=== PATIENT | male | born 1970 | race Caucasian/White ===

== ENCOUNTER 2022-05-03 06:50 | Observation (INO) | payer BC ==
[2022-04-29 13:13] LABS: Absolute Lymphocytes (CBC) 1.4 K/uL (0.7-4.9); Hematocrit 48.3 % (39.6-49.0); Lymphocytes % 23.7 % (15.3-44.8); MCV 89.3 fL (80-100); MPV 8.4 fL (7.6-11.3); RBC Red Blood Cell Count 5.41 M/uL (4.33-5.43)
[2022-04-29 13:25] LABS: Potassium 4.4 mmol/L (3.5-5.1)
[2022-05-03] MEDS ORDERED: CEFAZOLIN SODIUM 1 GM/VIAL ONE (07:12)
[2022-05-03] MEDS: Ringers Lactate 1,000 ML IV ONE (07:30)
[2022-05-03] MEDS ORDERED: propofoL 200 MG/20 ML VIAL IV ONE (07:46)
[2022-05-03] MEDS ORDERED: MIDAZOLAM HCL 2 MG/2 ML INJ ONE (07:46)
[2022-05-03] MEDS ORDERED: FENTANYL CITR 100 MCG/2 ML ONE (07:46)
[2022-05-03] MEDS ORDERED: ROCURONIUM 50 MG/5 ML VIAL IV ONE ×2 (07:47→08:48)
[2022-05-03] MEDS ORDERED: LIDOCAINE 2% MPF 5 ML VIAL ONE (07:47)
[2022-05-03] MEDS ORDERED: ONDANSETRON 4 MG/2 ML VIAL ONE (07:47)
--- NOTE | 2022-05-03 07:56 | P.HP ---
Date of Service: 05/03/22 PC: This 51-year-old male presents for repair of right possible left inguinal hernia with mesh. HPC: Patient has been experiencing right lower quadrant abdominal pain for the last few months. States he feels a bulge in that area. Hurts whenever he strains coughs or lifts anything. PSHx: Negative Social Hx: Allergic to clindamycin Sys R: No cough, wheeze, shortness of breath. No chest pain or palpitations. Denies any urinary complaints O/E: Awake alert vital signs are stable HEENT: Intact Chest: Air entry equal bilaterally Abd: Right reducible inguinal hernia with cough impulse, left side questionable [place]: Intact Data: Within normal limits Impression: Right possible left inguinal hernia. Plan: I will take him to the operating room for laparoscopic possible open repair of this right inguinal hernia. We will also do the left-hand side if we see a sac in that area. The risks of this procedure have been discussed. The possibility of bleeding, infection, chronic pain, need for further surgeries and procedures as well as recurrence were outlined. He understands and wants to proceed.
[2022-05-03] MEDS ORDERED: GLYCOPYRROLATE 0.2 MG/ML SYR ONE ×2 (08:15→10:02)
[2022-05-03 08:24] LABS: SARS-CoV-2 Antigen Rapid Res Negative (Negative)
[2022-05-03] MEDS ORDERED: dexAMETHasone 10 MG/ML VIAL ONE (08:34)
[2022-05-03] MEDS ORDERED: EPHEDRINE SULF 50 MG/ML VIAL ONE (08:44)
[2022-05-03] MEDS ORDERED: MORPHINE 10 MG/ML VIAL ONE (09:42)
[2022-05-03] MEDS ORDERED: KETOROLAC 30 MG/ML INJ ONE (09:45)
--- NOTE | 2022-05-03 10:01 | P.OP ---
Preoperative diagnosis: Recurrent right inguinal hernia possible left Postoperative diagnosis: Recurrent right inguinal hernia [indirect) Primary procedure: Transabdominal reduction and repair of recurrent right inguinal hernia Anesthesia: General Estimated blood loss: Less than 10 cc Specimen: # Operative Technique: The patient brought the operating room placed supine on the table. After the induction of adequate general endotracheal anesthesia, the area of the abdomen was prepped with a DuraPrep solution, Horn catheter was inserted, and he was draped in usual aseptic manner. A subumbilical incision was made. This brought down through the skin and subcutaneous tissue. Anterior fascia was opened and a finger was passed down towards the pubic symphysis. We tried to pass our preperitoneal balloon, but it did not pass easily. Hence I converted to a transabdominal repair. Through our initial subumbilical incision we were now able to use a Visiport into the peritoneal cavity. General inspection of the abdominal cavity showed a lot of adhesions in the upper midline into his midline incision. Down in the left side we could see that there was adhesions to the mesh and the area where he had his previous left inguinal hernia repair done. On the right side there was an obvious indirect inguinal hernia. The peritoneum was opened above the mesh. The inferior portion of the peritoneum was dissected off the mesh well down into the peritoneal cavity. Dissecting medially were able to see the attachment of the mesh to the pubic tubercle. Superior pole flap was also developed. Now using a right medium piece preformed mesh this was introduced into the peritoneal cavity. It was fixed medially at the Jered's ligament. It was then laid in and a light tach was placed at the tail of the mesh. The area was now reperitonealized using the protractor as well. Good coverage of the mesh having been obtained, the patient was taken out of Trendelenburg. The pneumoperitoneum was then collapsed. We could see the intestines rolled up on top of the peritoneum. A good repair having been obtained, the peritoneal cavity was now completely deflated. Attention was turned towards umbilical trocar site. This was approximated using an absorbable suture Maxon. At this point the incisions were injected with 0.25% Marcaine, and the skin was closed with tierney. At the end the procedure he was in a stable condition when sent to the recovery room. Needle sponge instrument count were correct. No drains were placed. 1 piece of mesh was introduced to the right inguinal area. The Horn catheter had been removed. Estimated blood loss less than 10 cc. Complications: None Transferred to: Recovery Room Condition: Good
[2022-05-03] MEDS ORDERED: NEOSTIGMINE 1 MG/ML -5 ML ONE (10:02)
[2022-05-03] MEDS ORDERED: HYDROCODONE/APAP 7.5/325 MG TAB PO PRN (10:13)
[2022-05-03] MEDS ORDERED: MORPHINE 4 MG/ML SYR IV PRN (10:13)
[2022-05-03] MEDS: HYDROMORPHONE HCL 1 MG/ML INJ ONE ×2 (10:15→10:27)
--- OUTSIDE RECORDS SUMMARY | 2022-05-03 10:32 | XMS REPORT | Continuity of Care Document ---
:1970 Author Organization [facility] t Address [address] [place] [address] Care Team Providers Name Role Phone Luis Murphy MD Primary Care Physician AL WEBBER Attending Clinician Unavailable Al Webber MD Attending Clinician Lab, Ang - Db Attending Clinician Unavailable Doctor Unassigned, [place] Attending Clinician Unavailable Provider, [facility] Attending Clinician Unavailable Valery Silveira Attending Clinician VALERY PINZON Attending Clinician Unavailable Gabriel Rashid MD Attending Clinician Payers Payer Name Policy Type Policy Number Effective Date Expiration Date S ource Problems Condition Condition Condition Status Onset Resolution Last Treating Co mments Source Name Details Category Date Date Treatment Clinician Date Cellulitis Cellulitis Disease Active 2019-0 U nivers of right of right 3-19 ity of hand hand 00:00: [address] Allergies, Adverse Reactions, Alerts Allergy Allergy Status Severity Reaction(s) Onset Inactive Treating Comm ents Source Name Type Date Date Clinician clindamy DA Active [facility]- [place] [facility] adhesive DA Active [facility] 8[facility]22 [place] [facility] CLINDAMY DRUG Active Hives Univers JARED HCL INGREDI 3-17 ity of 00:00: [place] 00 Medical Branch Clindamy Propensi Active Hives Univer s jared Hcl ty to 3-17 ity of adverse 00:00: [place] reaction 00 Medical s Branch Social History Social Habit Start Date Stop Date Quantity Comments Source Exposure to 2021-12-14 2021-12-24 Not sure [facility]-CoV-2 00:00:00 09:41:00 [facility] (event) [place] Alcohol intake 2020-05-17 2020-05-17 Current University of 00:00:00 00:00:00 non-drinker of [facility] alcohol (finding) [place] Tobacco use and 2018-06-10 2018-06-10 Smokeless tobacco Un iversity of exposure 00:00:00 00:00:00 non-user [facility] Sex Ass[birth year] At [birth year] Universit y of 00:00:00 00:00:00 [facility] Smoking Status Start Date Stop Date Source Never smoked tobacco [facility] [place] [facility] Medications Ordered Filled Start Stop Current Ordering Indication Dosage Frequency Signature Comments Components Source Medication Medication Date Date Medication? Clinician (SIG) Name Name metoprolol 2021-03- No 25mg Take 25 mg Univers tartrate 25 0-02 10-02 by mouth 2 i ty of mg tablet 16:34: 00:00 (two) [place] 41 :00 times Medical daily. Branch POTASSIUM 2021-03- No Take by [facility] ers ORAL 0-02 10-02 mouth. ity of 16:34: 00:00 [place] 41 :00 Medical Branch metoprolol 2021-03- No 25mg Take 25 mg Univers tartrate 25 0-02 10-02 by mouth 2 i ty of mg tablet 16:34: 00:00 (two) [place] 41 :00 times Medical daily. Branch POTASSIUM 2021-03- No Take by [facility] ers ORAL 0-02 10-02 mouth. ity of 16:34: 00:00 [place] 41 :00 Medical Branch metoprolol 2021-03- No 25mg Take 25 mg Univers tartrate 25 0-02 10-02 by mouth 2 i ty of mg tablet 16:34: 00:00 (two) [place] 41 :00 times Medical daily. Branch POTASSIUM 2021-03- No Take by [facility] ers ORAL 0-02 10- mouth. ity of 16:34: 00:00 [place] 41 :00 Medical Branch metoprolol 2021-03- No 25mg Take 25 mg Univers tartrate 25 0-02 10-02 by mouth 2 i ty of mg tablet 16:34: 00:00 (two) [place] 41 :00 times Medical daily. Branch POTASSIUM 2021-03- No Take by [facility] ers ORAL 0-02 10- mouth. ity of 16:34: 00:00 [place] 41 :00 Medical Branch furosemide 2021-03- No 80mg Take 80 mg Univers 80 mg 0-02 10-02 by mouth ity of tablet 16:34: 00:00 daily. [place] 38 :00 Medical Branch furosemide 2021-03- No 80mg Take 80 mg Univers 80 mg 0-02 10-02 by mouth ity of tablet 16:34: 00:00 daily. [place] 38 :00 Medical Branch furosemide 2021-03- No 80mg Take 80 mg Univers 80 mg 0-02 10-02 by mouth ity of tablet 16:34: 00:00 daily. [place] 38 :00 Medical Branch furosemide 2021-03- No 80mg Take 80 mg Univers 80 mg 0-02 10-02 by mouth ity of tablet 16:34: 00:00 daily. [place] 38 :00 Medical Branch naltrexone 0 Yes [id number] 25mg Take 0.5 Univers 50 mg 9-30 tablets by ity of tablet 00:00: mouth [place] 00 every Medical other day. Branch buPROPion 0 Yes [id number] 100mg Take 1 Univers SR 100 mg 9-30 tablet by ity o f SR tablet 00:00: [place] the Medical morning. Branch semaglutide Yes [id number] 2.4mg inject 2.4 Univers , weight 9-30 mg under ity of loss, 00:00: the skin [place] (WE) 00 weekly. Medical 2.4 mg/0.75 Branch mL PnIj SC injection naltrexone 2021-0 Yes [id number] 25mg Take 0.5 Univers 50 mg 9-30 tablets by ity of tablet 00:00: mouth [place] 00 every Medical other day. Branch buPROPion 2021-0 Yes [id number] 100mg Take 1 Univers SR 100 mg 9-30 tablet by ity o f SR tablet 00:00: [place] the Medical morning. Branch semaglutide 2021-0 Yes [id number] 2.4mg inject 2.4 Univers , weight 9-30 mg under ity of loss, 00:00: the [facility] (WE) 00 weekly. Medical 2.4 mg/0.75 Branch mL PnIj SC injection naltrexone 2021-0 Yes [id number] 25mg Take 0.5 Univers 50 mg 9-30 tablets by ity of tablet 00:00: mouth [place] 00 every Medical other day. Branch buPROPion 2021-0 Yes [id number] 100mg Take 1 Univers SR 100 mg 9-30 tablet by ity o f SR tablet 00:00: [place] the Medical morning. Branch semaglutide 2021-0 Yes [id number] 2.4mg inject 2.4 Univers , weight 9-30 mg under ity of loss, 00:00: the [facility] (WEY) 00 weekly. Medical 2.4 mg/0.75 Branch mL PnIj SC injection naltrexone 2021-0 Yes [id number] 25mg Take 0.5 Univers 50 mg 9-30 tablets by ity of tablet 00:00: mouth [place] 00 every Medical other day. Branch buPROPion 2021-0 Yes [id number] 100mg Take 1 Univers SR 100 mg 9-30 tablet by ity o f SR tablet 00:00: [place] the Medical morning. Branch semaglutide 2-0 Yes [id number] 2.4mg inject 2.4 Univers , weight 9-30 mg under ity of loss, 00:00: the [facility] (WEVY) 00 weekly. Medical 2.4 mg/0.75 Branch mL PnIj SC injection naltrexone 2021-0 Yes [id number] 25mg Take 0.5 Univers 50 mg 9-30 tablets by ity of tablet 00:00: mouth [place] 00 every Medical other day. Branch buPROPion 2021-0 Yes [id number] 100mg Take 1 Univers SR 100 mg 9-30 tablet by ity o f SR tablet 00:00: [place] the Medical morning. Branch semaglutide 2021-0 Yes [id number] 2.4mg inject 2.4 Univers , weight 9-30 mg under ity of loss, 00:00: the skin [place] (WEVY) 00 weekly. Medical 2.4 mg/0.75 Branch mL PnIj SC injection naltrexone 2021-0 Yes [id number] 25mg Take 0.5 Univers 50 mg 9-30 tablets by ity of tablet 00:00: mouth [place] 00 every Medical other day. Branch buPROPion 2021-0 Yes [id number] 100mg Take 1 Univers SR 100 mg 9-30 tablet by ity o f SR tablet 00:00: [place] the Medical morning. Branch semaglutide 2021-0 Yes [id number] 2.4mg inject 2.4 Univers , weight 9-30 mg under ity of loss, 00:00: the skin [place] (WEVY) 00 weekly. Medical 2.4 mg/0.75 Branch mL PnIj SC injection naltrexone 2021-0 Yes [id number] 25mg Take 0.5 Univers 50 mg 9-30 tablets by ity of tablet 00:00: mouth [place] 00 every Medical other day. Branch buPROPion 2021-0 Yes [id number] 100mg Take 1 Univers SR 100 mg 9-30 tablet by ity o f SR tablet 00:00: [place] the Medical morning. Branch semaglutide 2021-0 Yes [id number] 2.4mg inject 2.4 Univers , weight 9-30 mg under ity of loss, 00:00: the skin [place] (WEVY) 00 weekly. Medical 2.4 mg/0.75 Branch mL PnIj SC injection triamcinolo 2020-2020- No [id number] 40mg Univers ne 04-19 ity of acetonide 19:15: 18:20 [place] (KENALOG) 00 :00 Medical injection Branch 40 mg triamcinolo 2020- No [id number] 40mg 40 mg, Univers ne 1-24 01-24 Intramuscu ity of acetonide 19:15: 18:20 [place], ONCE, [place] (KENALOG[place] 00 :00 1 dose, Medical injection Sun Branch 40 mg 04/19/20 at 1315, Routine dabigatran 2020- No Take by Uni vers etexilate 04-19 0124 mouth. ity of mesylate 17:56: 00:00 [place] (PRADAXA 22 :00 Medical ORAL) Branch flecainide 2020-0 Yes 100mg Take 100 Un dash 50 mg 1-24 mg by ity of tablet 17:55: mouth 2 [place] 48 (two) Medical times Branch daily. metoprolol 2020-0 Yes 25mg Take 25 mg U nivers tartrate 25 1-24 by mouth 2 it y of mg tablet 17:55: (two) [place] 48 times Medical daily. Branch flecainide 0 Yes 100mg Take 100 Un dash 50 mg 1-24 mg by ity of tablet 17:55: mouth 2 [place] 48 (two) Medical times Branch daily. metoprolol 2020-0 Yes 25mg Take 25 mg U nivers tartrate 25 1-24 by mouth 2 it y of mg tablet 17:55: (two) [place] 48 times Medical daily. Branch flecainide 2020-0 Yes 100mg Take 100 Un dash 50 mg 1-24 mg by ity of tablet 11:55: mouth 2 [place] 48 (two) Medical times Branch daily. metoprolol 2020-0 Yes 25mg Take 25 mg U nivers tartrate 25 1-24 by mouth 2 it y of mg tablet 11:55: (two) [place] 48 times Medical daily. Branch flecainide 2020-0 Yes 100mg Take 100 Un dash 50 mg 1-24 mg by ity of tablet 11:55: mouth 2 [place] 48 (two) Medical times Branch daily. metoprolol 2020-0 Yes 25mg Take 25 mg U nivers tartrate 25 1-24 by mouth 2 it y of mg tablet 11:55: (two) [place] 48 times Medical daily. Branch flecainide 2020-0 Yes 100mg Take 100 Un dash 50 mg 1-24 mg by ity of tablet 11:55: mouth 2 [place] 48 (two) Medical times Branch daily. flecainide 2020-0 Yes 100mg Take 100 Un dash 50 mg 1-24 mg by ity of tablet 11:55: mouth 2 [place] [address] (two) Medical times Branch daily. flecainide 2021-0 Yes 100mg Take 100 Un dash 50 mg 1-24 mg by ity of tablet 11:55: mouth 2 [place] [address] (two) Medical times Branch daily. flecainide 2021-0 Yes 100mg Take 100 Un dash 50 mg 1-24 mg by ity of tablet 11:55: mouth 2 [place] [address] (two) Medical times Branch daily. flecainide 2021-0 Yes 100mg Take 100 Un dash 50 mg 1-24 mg by ity of tablet 11:55: mouth 2 [place] [address] (two) Medical times Branch daily. flecainide 2021-0 Yes 100mg Take 100 Un dash 50 mg 1-24 mg by ity of tablet 11:55: mouth 2 [place] [address] (two) Medical times Branch daily. flecainide 2021-0 Yes 100mg Take 100 Un dash 50 mg 1-24 mg by ity of tablet 11:55: mouth 2 [place] [address] (two) Medical times Branch daily. metoprolol 2021-0 Yes 25mg Take 25 mg U nivers tartrate 25 1-24 by mouth 2 it y of mg tablet 11:55: (two) [place] [address] times Medical daily. Branch methylPREDN 2021-0 Yes [id number] Take by Univers ISolone 1-24 mouth ity of (MEDROL, 00:00: SEE-INSTRU [place] as RUBY,) 4 mg 00 CTIONS. Medica l tablets follow Branch package directions methylPREDN 2021-0 Yes [id number] Take by Univers ISolone 1-24 mouth ity of (MEDROL, 00:00: SEE-INSTRU [place] as RUBY,) 4 mg 00 CTIONS. Medica l tablets follow Branch package directions methylPREDN 2021-0 Yes [id number] Take by Univers ISolone 1-24 mouth ity of (MEDROL, 00:00: SEE-INSTRU [place] as RUBY,) 4 mg 00 CTIONS. Medica l tablets follow Branch package directions methylPREDN 2021-0 Yes [id number] Take by Univers ISolone 1-24 mouth ity of (MEDROL, 00:00: SEE-INSTRU [place] as RUBY,) 4 mg 00 CTIONS. Medica l tablets follow Branch package directions methylPREDN 2021-0 Yes [id number] Take by Univers ISolone 1-24 mouth ity of (MEDROL, 00:00: SEE-INSTRU [place] as RUBY,) 4 mg 00 CTIONS. Medica l tablets follow Branch package directions methylPREDN 2021-0 Yes [id number] Take by Univers ISolone 1-24 mouth ity of (MEDROL, 00:00: SEE-INSTRU [place] as RUBY,) 4 mg 00 CTIONS. Medica l tablets follow Branch package directions methylPREDN 2021-0 Yes [id number] Take by Univers ISolone 1-24 mouth ity of (MEDROL, 00:00: SEE-INSTRU [place] as RUBY,) 4 mg 00 CTIONS. Medica l tablets follow Branch package directions methylPREDN 2021-0 Yes [id number] Take by Univers ISolone 1-24 mouth ity of (MEDROL, 00:00: SEE-INSTRU [place] as RUBY,) 4 mg 00 CTIONS. Medica l tablets follow Branch package directions methylPREDN 2021-0 Yes [id number] Take by Univers ISolone 1-24 mouth ity of (MEDROL, 00:00: SEE-INSTRU [place] as RUBY,) 4 mg 00 CTIONS. Medica l tablets follow Branch package directions methylPREDN 2021-0 Yes [id number] Take by Univers ISolone 1-24 mouth ity of (MEDROL, 00:00: SEE-INSTRU [place] as RUBY,) 4 mg 00 CTIONS. Medica l tablets follow Branch package directions methylPREDN 2021-0 Yes [id number] Take by Univers ISolone 1-24 mouth ity of (MEDROL, 00:00: SEE-INSTRU [place] as RUBY,) 4 mg 00 CTIONS. Medica l tablets follow Branch package directions ELIQUIS 5 2019- Yes Univers mg tablet 1-19 ity of 00:00: [place] [facility] ELIQUIS 5 2019- Yes Univers mg tablet 1-19 ity of 00:00: [place] [facility] ELIQUIS 5 2019- Yes Univers mg tablet 1-19 ity of 00:00: [place] [facility] ELIQUIS 5 2019- Yes Univers mg tablet 1-19 ity of 00:00: [place] [facility] ELIQUIS 5 2019-03 Yes Univers mg tablet 1-19 ity of 00:00: [place] [facility] ELIQUIS 5 2019-03 Yes Univers mg tablet 1-19 ity of 00:00: [place] [facility] ELIQUIS 5 2019-03 Yes Univers mg tablet -19 ity of 00:00: [place] [facility] ELIQUIS 5 2019-03 Yes Univers mg tablet 1-19 ity of 00:00: [place] [facility] ELIQUIS 5 2019-03 Yes Univers mg tablet -19 ity of 00:00: [place] [facility] ELIQUIS 5 2019-03 Yes Univers mg tablet 1-19 ity of 00:00: [place] [facility] ELIQUIS 5 2019-03 Yes Univers mg tablet 1-19 ity of 00:00: [address] POTASSIUM 2018-03 Yes Take by Unive rs ORAL 0-26 mouth. ity of 01:03: [address] POTASSIUM 2018-03 Yes Take by Univ ers ORAL 0-26 mouth. ity of 01:03: [address] furosemide 2018-03 Yes 80mg Take 80 mg U nivers 80 mg 0-26 by mouth ity of tablet 01:03: daily. [address] furosemide 2018-03 Yes 80mg Take 80 mg U nivers 80 mg 0-26 by mouth ity of tablet 01:03: daily. [address] POTASSIUM 2018-03 Yes Take by Unive rs ORAL 0-25 mouth. ity of 20:03: [address] POTASSIUM 2018-03 Yes Take by Unive rs ORAL 0-25 mouth. ity of 20:03: [address] POTASSIUM 2018-03 Yes Take by Unive rs ORAL 0-25 mouth. ity of 20:03: [address] furosemide 2018-03 Yes 80mg Take 80 mg U nivers 80 mg 0-25 by mouth ity of tablet 20:03: daily. [address] furosemide 2018-03 Yes 80mg Take 80 mg U nivers 80 mg 0-25 by mouth ity of tablet 20:03: daily. [address] furosemide 2018-03 Yes 80mg Take 80 mg U nivers 80 mg 0-25 by mouth ity of tablet 20:03: daily. [address] traMADol 2018-03 Yes [id number] 50mg Take 1 Univers (ULTRAM) 50 0-25 [id number] tablet by i ty of mg tablet 00:00: mouth [place] 00 every 8 Medical (eight) Branch hours as needed for Pain (scale 4-6). traMADol 2018-03 Yes [id number] 50mg Take 1 Univers (ULTRAM) 50 0-25 [id number] tablet by i ty of mg tablet 00:00: mouth [place] 00 every 8 Medical (eight) Branch hours as needed for Pain (scale 4-6). traMADol 2018-03 Yes [id number] 50mg Take 1 Univers (ULTRAM) 50 0-25 [id number] tablet by i ty of mg tablet 00:00: mouth [place] 00 every 8 Medical (eight) Branch hours as needed for Pain (scale 4-6). traMADol 2018-03- No [id number] 50mg Take 1 Univers (ULTRAM) 50 0-25 09-30 [id number] tablet by ity of mg tablet 00:00: 00:00 mouth [place] 00 :00 every 8 Medical (eight) Branch hours as needed for Pain (scale 4-6). traMADol 2018-03- No [id number] 50mg Take 1 Univers (ULTRAM) 50 0-25 09-30 [id number] tablet by ity of mg tablet 00:00: 00:00 mouth [place] 00 :00 every 8 Medical (eight) Branch hours as needed for Pain (scale 4-6). doxycycline 2018-03 Yes Univer s 100 mg 0-23 ity of capsule 00:00: [place] 00 Medical Branch doxycycline 2018- Yes Univer s 100 mg 0-23 ity of capsule 00:00: [place] 00 Medical Branch doxycycline 2019- Yes Univer s 100 mg 0-23 ity of capsule 00:00: [place] 00 Medical Branch doxycycline 2019- Yes Univer s 100 mg 0-23 ity of capsule 00:00: [place] 00 Medical Branch doxycycline 2019- Yes Univer s 100 mg 0-23 ity of capsule 00:00: [place] 00 Medical Branch doxycycline 2019- Yes Univer s 100 mg 0-23 ity of capsule 00:00: [place] 00 Medical Branch doxycycline 2019- Yes Univer s 100 mg 0-23 ity of capsule 00:00: [place] 00 Medical Branch doxycycline 2019- Yes Univer s 100 mg 0-23 ity of capsule 00:00: [place] 00 Medical Branch doxycycline 2019- Yes Univer s 100 mg 0-23 ity of capsule 00:00: [place] 00 Medical Branch doxycycline 2019-1 Yes Univer s 100 mg 0-23 ity of capsule 00:00: [place] 00 Medical Branch doxycycline 2019-1 Yes Univer s 100 mg 0-23 ity of capsule 00:00: [place] 00 Medical Branch dabigatran 2019-0 Yes Take by Univ ers etexilate 6-07 mouth. ity of mesylate 13:07: [place] (PRADAXA 12 Medical ORAL) Branch flecainide 2019-0 Yes 50mg Take 50 mg U nivers 50 mg 6-07 by mouth 2 ity of tablet 13:07: (two) [place] 12 times Medical daily. Branch losartan 2019-0 Yes 100mg Take 100 Univ ers 100 mg 6-07 mg by ity of tablet 13:07: mouth [place] 12 daily. Medical Branch metoprolol 0 Yes 25mg Take 25 mg U nivers tartrate 25 6-07 by mouth 2 it y of mg tablet 13:07: (two) [place] 12 times Medical daily. Branch furosemide Yes 80mg Take 80 mg U nivers 80 mg 6-07 by mouth ity of tablet 13:07: daily. [place] [address] Medical Branch POTASSIUM 2018-0 Yes Take by Unive rs ORAL 6-07 mouth. ity of 13:07: [place] [address] Medical Branch dabigatran 2018-0 Yes Take by Univ ers etexilate 6-07 mouth. ity of mesylate 13:07: [place] [facility] Branch flecainide 2018-0 Yes 50mg Take 50 mg U nivers 50 mg 6-07 by mouth 2 ity of tablet 13:07: (two) [place] 12 times Medical daily. Branch losartan 2019-0 Yes 100mg Take 100 Univ ers 100 mg 6-07 mg by ity of tablet 13:07: mouth [place] 12 daily. Medical Branch metoprolol 2019-0 Yes 25mg Take 25 mg U nivers tartrate 25 6-07 by mouth 2 it y of mg tablet 13:07: (two) [place] 12 times Medical daily. Branch furosemide 2019-0 Yes 80mg Take 80 mg U nivers 80 mg 6-07 by mouth ity of tablet 13:07: daily. [place] [address] Medical Branch POTASSIUM 2018-0 Yes Take by Unive rs ORAL 6-07 mouth. ity of 13:07: [place] [address] Medical Branch losartan 2019-0 Yes 100mg Take 100 Univ ers 100 mg 6-07 mg by ity of tablet 13:07: mouth [place] 12 daily. Medical Branch losartan 2019-0 Yes 100mg Take 100 Univ ers 100 mg 6-07 mg by ity of tablet 13:07: mouth [place] 12 daily. Medical Branch losartan 2019-0 Yes 100mg Take 100 Univ ers 100 mg 6-07 mg by ity of tablet 08:07: mouth [place] 12 daily. Medical Branch losartan 2019-0 Yes 100mg Take 100 Univ ers 100 mg 6-07 mg by ity of tablet 08:07: mouth [place] 12 daily. Medical Branch losartan 2019-0 Yes 100mg Take 100 Univ ers 100 mg 6-07 mg by ity of tablet 08:07: mouth [place] 12 daily. Medical Branch losartan 2019-0 Yes 100mg Take 100 Univ ers 100 mg 6-07 mg by ity of tablet 08:07: mouth [place] 12 daily. Medical Branch losartan 2019-0 Yes 100mg Take 100 Univ ers 100 mg 6-07 mg by ity of tablet 08:07: mouth [place] 12 daily. Medical Branch losartan 2019-0 Yes 100mg Take 100 Univ ers 100 mg 6-07 mg by ity of tablet 08:07: mouth [place] 12 daily. Medical Branch losartan 2019-0 Yes 100mg Take 100 Univ ers 100 mg 6-07 mg by ity of tablet 08:07: mouth [place] 12 daily. Medical Branch losartan 2019-0 Yes 100mg Take 100 Univ ers 100 mg 6-07 mg by ity of tablet 08:07: mouth [place] 12 daily. Medical Branch losartan 2019-0 Yes 100mg Take 100 Univ ers 100 mg 6-07 mg by ity of tablet 08:07: mouth [place] 12 daily. Medical Branch traMADOL 50 2019-0 Yes [id number] 50mg Take 1 Univers mg tablet - [id number] tablet by ity of 00:00: mouth [place] 00 every 4 Medical (four) Branch hours as needed for Pain (scale 4-6). traMADOL 50 2019-0 Yes [id number] 50mg Take 1 Univers mg tablet 3- [id number] tablet by ity of 00:00: mouth [place] 00 every 4 Medical (four) Branch hours as needed for Pain (scale 4-6). Immunizations Ordered Filled Immunization Date Status Comments [facility] Immunization Name Name TDAP 2018-06-10 Completed University of 00:00:00 [place] [facility] TDAP 2018-06-10 Completed University of 00:00:00 [place] [facility] TDAP 2018-06-10 Completed University of 00:00:00 [place] [facility] TDAP 2018-06-10 Completed University of 00:00:00 [place] [facility] TDAP 2018-06-10 Completed University of 00:00:00 [place] [facility] TDAP 2018-06-10 Completed University of 00:00:00 [place] [facility] TDAP 2018-06-10 Completed University of 00:00:00 [place] [facility] Tdap 2018-06-10 Completed University of 00:00:00 [place] [facility] TDAP 2018-06-10 Completed University of 00:00:00 [place] [facility] TDAP 2018-06-10 Completed University of 00:00:00 [place] [facility] Tdap 2018-06-10 Completed University of 00:00:00 [place] [facility] TDAP 2018-06-10 Completed University of 00:00:00 [place] [facility] TDAP 2018-06-10 Completed University of 00:00:00 [facility] Vital Signs Vital Name Observation Time Observation Value Comments Source Systolic blood 2021-12-24 15:10:00 135 mm[Hg] Univer sity of pressure [facility] Diastolic blood 2021-12-24 15:10:00 86 mm[Hg] Unive rsity of pressure [facility] Heart rate 2021-12-24 15:09:00 54 /min [facility] Body height 2021-12-24 15:09:00 191.8 cm [facility] Body weight 2021-12-24 15:09:00 147.102 kg [facility] BMI 2021-12-24 15:09:00 40.00 kg/m2 [facility] Oxygen saturation in 2021-12-24 15:09:00 97 /min [facility] Arterial blood by [facility] Pulse oximetry Branch Systolic blood 2020-05-17 16:06:00 125 mm[Hg] Univer sity of pressure [facility] Diastolic blood 2020-05-17 16:06:00 75 mm[Hg] Unive rsity of pressure [facility] Heart rate 2020-05-17 16:06:00 44 /min [facility] Body temperature 2020-05-17 16:06:00 37.06 Jennifer Univ ersity of [place] [facility] Respiratory rate 2020-05-17 16:06:00 18 /min Univ ersity of [place] [facility] Body height 2020-05-17 16:06:00 193 cm Universi ty of [place] [facility] Body weight 2020-05-17 16:06:00 147.419 kg Universi ty of [place] [facility] BMI 2020-05-17 16:06:00 39.56 kg/m2 Universi ty of [place] [facility] Oxygen saturation in 2020-05-17 16:06:00 97 /min University of Arterial blood by [facility] Pulse oximetry Branch Systolic blood 2020-04-19 17:56:00 100 mm[Hg] Univer sity of pressure [place] [facility] Diastolic blood 2020-04-19 17:56:00 60 mm[Hg] Unive rsity of pressure [place] [facility] Heart rate 2020-04-19 17:56:00 50 /min Universi ty of [place] [facility] Body temperature 2020-04-19 17:56:00 36.83 Jennifer [facility] [place] [facility] Respiratory rate 2020-04-19 17:56:00 14 /min [facility] ersity of [place] [facility] Body height 2020-04-19 17:56:00 193 cm Universi ty of [place] [facility] Body weight 2020-04-19 17:56:00 150.141 kg Universi ty of [place] [facility] BMI 2020-04-19 17:56:00 40.29 kg/m2 Universi ty of [place] [facility] Oxygen saturation in 2020-04-19 17:56:00 98 /min University of Arterial blood by [facility] Pulse oximetry Branch Procedures Procedure Date / Time Performing Clinician Source Performed ASSIGNMENT OF BENEFITS 2021-12-24 14:43:25 Doctor Unassigned, [facility] [place] [facility] INSURANCE CORRESPONDENCE 2021-11-24 05:01:00 Doctor Moshe, [facility] [place] [facility] 2018-09-26 05:01:00 Doctor Unassigned, [facility] DOCUMENTATION [place] [facility] Encounters Start End Encounter Admission Attending Care Care Encounter Source Date/Time Date/Time Type Type Clinicians Facility Department ID 2022-04-09 2022-04-09 Patient Lawanda [facility] [id number] Univers 00:00:00 00:00:00 Secure Msg [facility] [id number] ity of [place] [id number] [place] as [id number]?[id number] [facility] [address] [facility] OFFICE [facility] 2021-12-26 2021-12-26 Telephone [facility] [id number] Univers 00:00:00 00:00:00 [facility] HEALTH [id number] it y of [place] 4.2.7.2.686 [place] as YUSUF?BLEA [phone] [address] OFFICE [facility] 2021-12-24 2021-12-24 Occasional Babysitter Lab, Ang - [facility] 1.2.840.1 [id number] Univers 11:00:00 11:15:00 Visit Webber Al Ruvalcaba Hakia 350.1.13.10 ity of [place] 4.2.7.2.686 [place] as YUSUF?BLEA [phone] [facility] [address] [facility] OFFICE [facility] 2021-12-24 2021-12-24 Office [facility] [id number] Univers 10:00:00 11:08:51 Visit Al Ruvalcaba Hakia 350.1.13.10 it y of [place] 4.2.7.2.686 [place] as YUSUF?BLEA [phone] [address] OFFICE [facility] 2021-12-24 2021-12-24 Outpatient [facility] [id number] Univers 10:00:00 11:08:51 AL ity of [facility] 2021-12-24 2021-12-24 Orders Doctor MICHAEL 1.2.840.114 [id number] Univers 00:00:00 00:00:00 Only Unassigned, JAMI 350.1.13.10 ity of [place] [facility] 4.2.7.2.686 [place] as [phone] [address] 2021-11-24 2021-11-24 Orders Doctor MICHAEL 1.2.840.114 [id number] Univers 00:00:00 00:00:00 Only Unassigned, JAMI 350.1.13.10 ity of [place] [facility] 4.2.7.2.686 [place] as [phone] [address] 2020-05-17 2020-05-17 Urgent Provider, Ang [facility] 1.2.840.114 [id number] Univers 10:01:00 10:21:00 Care [facility] 350.1.13.10 ity of [place] 4.2.7.2.686 [place] as Professio [phone] [address] Office [facility] 2020-05-17 2020-05-17 Outpatient [facility] [id number] Univers 10:00:00 10:00:00 VALERY ity of [facility] 2020-04-19 2020-04-19 Urgent Provider, Ang [facility] 1.2.840.114 [id number] Univers 11:43:57 12:41:18 Care [facility] 350.1.13.10 ity of [place] 4.2.7.2.686 [place] as Professio [phone] [address] Office [facility] 2020-04-19 2020-04-19 Outpatient [facility] [id number] Univers 11:40:00 11:40:00 VALERY ity of [facility] 2018-09-26 2018-09-26 [facility] 1.2.840.114 [id number] 09:22:53 23:59:00 Encounter Gabriel BABIN 350.1.13.10 [place] 4.2.7.2.686 [phone] [facility] 2018-09-26 2018-09-26 [facility] 1.2.840.114 [id number] Univers 09:22:53 23:59:00 Encounter Gabriel BABIN 350.1.13.10 [place] [phone] [address] 2018-09-26 2018-09-26 Orders Doctor RODRIGUEZ 1.2.840.114 [id number] Univers 00:00:00 00:00:00 Only Unassigned, JAMI 350.1.13.10 ity [place] [facility] 4.2.7.2.686 [place] as [phone] [facility] [address] 2018-09-26 2018-09-26 Orders Doctor MICHAEL 1.2.840.114 [id number] 00:00:00 00:00:00 Only Unassigned, JAMI 350.1.13.10 [place] [facility] 4.2.7.2.686 [phone] [id number] Results Test Description Test Time Test Comments Results Result [facility] e Comments SURGICAL SPECIMENS 2018-11-21 17:05:00 --------RUN DATE: 11/21/18 Martha MARTIN *LIVE* PAGE 1 RUN TIME: 1706 Specimen Inquiry RUN USER: INTERFACE --------PATIENT: IDALIA HILL LESLI LOC: P. POD B U #: [id number] AGE/SX: 48/M ROOM: [facility] RE11/20/18JOSUE DR: Eileen Barriga : 66 BED: 1 DIS: 11/21/18 STATUS: DIS IN TLOC: -------- SPEC #: [id number] RECD: 11/20/18 STATUS: RACHELE ZEE #: [id number] MELY: 11/20/[address] [facility] [address]: Eileen Barriga MD ENTERED: 11/20/18 SP TYPE: SURG OTHR DR: ORDERED: PATHGM5, PATH SPEC, H E STAIN HISTOLOGY: TISSUE ID BLK PCS RICK LEV / PROCEDURE DISPOSITION ____ ___ ___ ___ ___ STOMACH RESECT A 1 1 TISSUES: A. STOMACH SUBTOTAL RESECTION - Partial Stomach CLINICAL HISTORY Morbid Obesity FINAL DIAGNOSIS PARTIAL STOMACH (SLEEVE GASTRECTOMY): - Gastric body tissue, no diagnostic abnormality. GROSS DESCRIPTION PARTIAL STOMACH (SLEEVE GASTRECTOMY): The specimen is a single segment of hollow viscus consistent with sleeve gastrectomy, 25 x 4 x 2.5 cm. The serosal surface is pink-jones and glistening without masses. A row of tierney closes the margin. The lumen is empty. The mucosa is jones and erythematous rugae without masses. No masses are palpable. Sectioning shows a gastric wall of normal thickness without masses. Software Specialist sections submitted. JGF/eb MICROSCOPIC DESCRIPTION Microscopic performed. Signed SIGNATURE ON FILE Travis Suarez MD 11/21/18 2861 -------- END OF REPORT BASIC METABOLIC PANEL 2018-11-21 05:19:00 Test Item Value Reference Range Interpretation Comme nts SODIUM (test code = NA) 138 MMOL/L 136-143 N POTASSIUM (test code = K) 4.3 MMOL/L 3.5-5.1 N CHLORIDE (test code = CL) 100 MMOL/L 98-107 N CARBON DIOXIDE (test code = 31 mmol/L 24-31 N CO2) GLUCOSE (test code = GLU) 108 mg/dL 70-104 H BLOOD UREA NITROGEN (test 11.4 MG/DL 7.0-21.0 N code = BUN) GLOMERULAR FILTRATION RATE >=60 max estimate >60 The estimated glomerular (test code = GFR) filtration rate is computed usingpatient ra ce, age (>18), sex, and serum creatinine. If anyof the neede d data elements are mi ssing the Laboratory enedina ot compute an estimation of t he glomerular filtration rate . CREATININE (test code = 0.7 mg/dL 0.8-1.5 L CREAT) CALCIUM (test code = CA) 9.1 mg/dL 8.8-10.2 N [id number] 05:19:00 Test Item Value Reference Range Interpretation Comments MAGNESIUM (test code = MAG) 1.9 mg/dL 1.4-2.6 N [id number] 05:19:00 Test Item Value Reference Range Interpretation Comments PHOSPHOROUS (test code = PHOS) 4.4 mg/dL 2.7-4.5 N CBC W/AUTO [id number] 05:13:00 Test Item Value Reference Range Interpretation Comments WHITE BLOOD CELL (test code = 9.7 x10 3/uL 4.8-10.8 N WBC) RED BLOOD CELL (test code = 5.31 x10 6/uL 4.70-6.10 N RBC) HEMOGLOBIN (test code = HGB) 15.7 g/dL 14.5-20 N HEMATOCRIT (test code = HCT) 47.6 % 42.0-52.0 N MEAN CELL VOLUME (test code = 89.6 fL 80.0-94.0 N MCV) MEAN CELL HGB (test code = MCH) 29.6 pg 27-31 N MEAN CELL HGB CONCENTRATION 33.0 G/DL 33-36.5 N (test code = MCHC) RED CELL DISTRIBUTION WIDTH 13.1 % 12.9-16.9 N (test code = RDW) PLATELET COUNT (test code = 196 150-440 N PLT) MEAN PLATELET VOLUME (test code 10.9 fL 8.9-12.4 N = MPV) NEUTROPHIL % (test code = NT%) 78.1 % 42.2-75.2 H LYMPHOCYTE % (test code = LY%) 12.0 % 20.5-51.1 L MONOCYTE % (test code = MO%) 9.1 % 1.7-9.3 N EOSINOPHIL % (test code = EO%) 0.3 % 0.0-7.0 N BASOPHIL % (test code = BA%) 0.2 % 0-2.5 N NEUTROPHIL # (test code = NT#) 7.55 x10 3/uL 1.80-7.70 N LYMPHOCYTE # (test code = LY#) 1.16 x10 3/uL 1.00-4.80 N MONOCYTE # (test code = MO#) 0.88 x10 3/uL 0.00-0.80 H EOSINOPHIL # (test code = EO#) 0.03 x10 3/uL 0.00-0.45 N BASOPHIL # (test code = BA#) 0.02 x10 3/uL 0.0-0.20 N BASIC METABOLIC [id number] 17:22:00 Test Item Value Reference Range Interpretation Comments SODIUM (test code 133 MMOL/L 136-143 L = NA) POTASSIUM (test 4.2 MMOL/L 3.5-5.1 N code = K) CHLORIDE (test 94 MMOL/L 98-107 L code = CL) CARBON DIOXIDE 29 mmol/L 24-31 N (test code = CO2) GLUCOSE (test code 88 mg/dL 70-104 N = GLU) BLOOD UREA 33.1 MG/DL 7.0-21.0 H NITROGEN (test code = BUN) GLOMERULAR >=60 max >60 The estimated FILTRATION RATE estimate glomerular (test code = GFR) filtration rate is computed usingpatient ra ce, age (>18), sex, and serum creatinin e. If anyof the neede d data elements a re missing the Laboratory enedina ot compute an estimation of t he glomerular filtration rate . CREATININE (test 0.8 mg/dL 0.8-1.5 N code = CREAT) CALCIUM (test code 10.4 mg/dL 8.8-10.2 H = CA) CBC W/AUTO [id number] 17:07:00 Test Item Value Reference Range Interpretation Comments WHITE BLOOD CELL (test code = 9.4 x10 3/uL 4.8-10.8 N WBC) RED BLOOD CELL (test code = 5.70 x10 6/uL 4.70-6.10 N RBC) HEMOGLOBIN (test code = HGB) 16.7 g/dL 14.5-20 N HEMATOCRIT (test code = HCT) 49.1 % 42.0-52.0 N MEAN CELL VOLUME (test code = 86.1 fL 80.0-94.0 N MCV) MEAN CELL HGB (test code = MCH) 29.3 pg 27-31 N MEAN CELL HGB CONCENTRATION 34.0 G/DL 33-36.5 N (test code = MCHC) RED CELL DISTRIBUTION WIDTH 13.1 % 12.9-16.9 N (test code = RDW) PLATELET COUNT (test code = 216 150-440 N PLT) MEAN PLATELET VOLUME (test code 11.2 fL 8.9-12.4 N = MPV) NEUTROPHIL % (test code = NT%) 70.3 % 42.2-75.2 N LYMPHOCYTE % (test code = LY%) 16.6 % 20.5-51.1 L MONOCYTE % (test code = MO%) 10.6 % 1.7-9.3 H EOSINOPHIL % (test code = EO%) 1.5 % 0.0-7.0 N BASOPHIL % (test code = BA%) 0.5 % 0-2.5 N NEUTROPHIL # (test code = NT#) 6.60 x10 3/uL 1.80-7.70 N LYMPHOCYTE # (test code = LY#) 1.56 x10 3/uL 1.00-4.80 N MONOCYTE # (test code = MO#) 1.00 x10 3/uL 0.00-0.80 H EOSINOPHIL # (test code = EO#) 0.14 x10 3/uL 0.00-0.45 N BASOPHIL # (test code = BA#) 0.05 x10 3/uL 0.0-0.20 N
[2022-05-03 10:47] VITALS: O2SAT 98
[2022-05-03 11:27] VITALS: BMI 39.4
[2022-05-03] MEDS: IBUPROFEN 400 MG TAB PO SCH (20:47)
[2022-05-03] MEDS: FLECAINIDE 100 MG TAB PO SCH (20:47)
[2022-05-03] MEDS: APIXABAN 5 MG TABLET PO SCH (20:48)
[2022-05-03] MEDS ORDERED: LOSARTAN POTASSIUM 50 MG TABLET PO SCH (21:00)
[2022-05-04] MEDS ORDERED: MAGNESIUM OXIDE 400 MG TAB PO SCH (09:00)
[2022-05-04] MEDS ORDERED: buPROPion HCL 100 MG TAB PO SCH (09:00)
[2022-05-04] MEDS ORDERED: ASCORBIC ACID 500 MG TABLET PO SCH (09:00)
[2022-05-04] MEDS ORDERED: ZINC SULFATE 220 MG CAP PO SCH (09:00)
[2022-05-04] MEDS ORDERED: LOSARTAN POTASSIUM 50 MG TABLET PO SCH (09:00)
[2022-05-04] MEDS ORDERED: VITAMIN D 1000 UNIT TAB PO SCH (09:00)
[2022-05-04] MEDS ORDERED: VITAMIN B COMPLEX 1 CAP PO SCH (09:00)
[2022-05-04] MEDS ORDERED: TURMERIC 400 MG PO SCH (09:00)
[2022-05-04] MEDS: APIXABAN 5 MG TABLET PO SCH (09:30)
[2022-05-04] MEDS: FLECAINIDE 100 MG TAB PO SCH (09:30)
[2022-05-04] MEDS: IBUPROFEN 400 MG TAB PO SCH (09:32)
[2022-05-04 12:34] VITALS: BP 103/52; TEMP 97.8
[2022-05-05] MEDS ORDERED: NALTREXONE PO SCH (09:00)
== END 2022-05-04 15:02 | disposition home or self-care (01) ==
LOC: OR 06:50 → 2ND 10:28
PROVIDERS: ADMIT Surgery; ATTEND Surgery
PROC: 0YU54JZ Supplement Right Inguinal Region with Synthetic Substitute, Percutaneous Endoscopic Approach (ICD-10-PCS; principal; 2022-05-03 08:00)
DX: K40.91 Unilateral inguinal hernia, without obstruction or gangrene, recurrent (principal); Z20.822 Contact with and (suspected) exposure to COVID-19
CPT/HCPCS: 85025; 80048; 36415 ×2; 94010; 87811; 49651; J2704; J2001; J2250; J3010; J1100; J1170; J2710; J7120; J2405; J0690; G0378; G0379